=== PATIENT | female | born 2000 | race African-American/Black ===

== ENCOUNTER 2022-05-07 08:06 | Emergency (ER) | payer OTHER ==
[2022-05-07 08:20] VITALS: BP 112/77; PULSE 71; RESP 16; TEMP 97.6; BMI 33.0
[2022-05-07] MEDS ORDERED: LIDOCAINE 5% TOPICAL PATCH TP ONE (09:46)
[2022-05-07] MEDS ORDERED: KETOROLAC TROMETHAMINE 30 MG/1 ML VIAL IM ONE (09:46)
[2022-05-07] MEDS ORDERED: ACETAMINOPHEN 500 MG TABLET (FP) PO ONE (09:46)
[2022-05-07] MEDS ORDERED: CYCLOBENZAPRINE HCL 10 MG TABLET (FP) PO ONE (09:46)
[2022-05-07] MEDS ORDERED: LIDOCAINE 5% TOPICAL PATCH ONE (09:54)
[2022-05-07] MEDS ORDERED: KETOROLAC TROMETHAMINE 30 MG/1 ML VIAL ONE (09:54)
[2022-05-07] MEDS ORDERED: CYCLOBENZAPRINE HCL 10 MG TABLET (FP) ONE (09:54)
[2022-05-07] MEDS ORDERED: ACETAMINOPHEN 500 MG TABLET (FP) ONE (09:55)
[2022-05-07] MEDS ORDERED: LIDOCAINE PATCH REMOVAL MC ONE (22:00)
== END 2022-05-07 11:34 | disposition home or self-care (01) ==
LOC: JERFT 08:06 → JER 08:06 → JERFT 11:34
PROC: 3E0233Z Introduction of Anti-inflammatory into Muscle, Percutaneous Approach (ICD-10-PCS; principal; 2022-05-07)
DX: M54.2 Cervicalgia (principal); M54.50 Low back pain, unspecified; V43.62XA Car passenger injured in collision with other type car in traffic accident, initial encounter
CPT/HCPCS: 72125-TC; 99284-25

== ENCOUNTER 2023-12-15 14:41 | Emergency (ER) | payer OTHER ==
[2023-12-15 14:48] VITALS: BP 116/78; PULSE 86; RESP 20; TEMP 98.7; BMI 36.6
[2023-12-15 15:50] LABS: HCG,QUALITATIVE URINE Positive
[2023-12-15 15:51] LABS: EPI CELLS >36 /uL (0-25.1); HYALINE CASTS 7 /uL (0-3.1); PH,URINE 5.5 (5.0-8.0); URINE APPEARANCE CLOUDY; URINE BACTERIA 1144 /uL (0-1359); URINE BILIRUBIN 1+ (NEGATIVE); URINE COLOR DK YELLOW; URINE GLUCOSE (UA) NEGATIVE (NEGATIVE); URINE KETONE 1+ (NEGATIVE); URINE LEUK ESTERASE TRACE (NEGATIVE); URINE NITRITE NEGATIVE (NEGATIVE); URINE PROTEIN 1+ (NEGATIVE); URINE RBC 17 /uL (0-23.9); URINE WBC 89 /uL (0-25.8)
[2023-12-15] MEDS ORDERED: CEPHALEXIN MONOHYDRATE 500 MG CAPSULE (UD) ONE (16:29)
[2023-12-15] MEDS: CEPHALEXIN MONOHYDRATE 500 MG CAPSULE (UD) PO STA (16:43)
[2023-12-15 17:39] LABS: HIV INTERPRETATION NEGATIVE (NEGATIVE)
== END 2023-12-15 17:06 | disposition home or self-care (01) ==
LOC: JER 14:41
DX: O23.41 Unspecified infection of urinary tract in pregnancy, first trimester (principal); Z3A.00 Weeks of gestation of pregnancy not specified
CPT/HCPCS: 36415; 81003; 84702; 84703; 86803; 87086; 87389; 87491; 87591; 87661; 99283-25

== ENCOUNTER 2024-01-05 14:43 | Emergency (ER) | payer OTHER ==
[2024-01-05 14:51] VITALS: RESP 20; TEMP 97.8; BMI 36.6
[2024-01-05 15:33] LABS: BASO % 0.4 % (0-2.0); EOS % 1.1 % (0-4.5); HEMATOCRIT 38.7 % (32.4-45.2); HEMOGLOBIN 12.6 GM/dL (10.7-15.3); LYMPH % 17.6 % (8-40); MCH 28.4 pg (25.7-33.7); MCHC 32.7 g/dl (32.0-36.0); MEAN CELL VOLUME 87.1 fl (80-96); MEAN PLT VOLUME 8.1 fl (7.5-11.1); MONO % 9.2 % (3.8-10.2); NEUT % 71.7 % (42.8-82.8); PLATELET COUNT 308 10^3/uL (134-434); RBC 4.45 M/mm3 (3.60-5.2); RDW 13.7 % (11.6-15.6); WHITE BLOOD COUNT 15.2 K/mm3 (4.0-10.0)
[2024-01-05 16:14] LABS: POTASSIUM 4.2 mmol/L (3.5-5.1)
[2024-01-05 16:15] LABS: CALCIUM 9.4 mg/dL (8.5-10.1)
[2024-01-05 16:16] LABS: BLOOD UREA NITROGEN 6.1 mg/dL (7-18)
[2024-01-05 16:19] LABS: CREATININE 0.6 mg/dL (0.55-1.3)
[2024-01-05 16:23] LABS: HCG,QUALITATIVE URINE Positive
[2024-01-05 16:26] LABS: EPI CELLS >36 /uL (0-25.1); HYALINE CASTS 6 /uL (0-3.1); PH,URINE 6.5 (5.0-8.0); URINE APPEARANCE CLOUDY; URINE BACTERIA 2137 /uL (0-1359); URINE BILIRUBIN NEGATIVE (NEGATIVE); URINE COLOR YELLOW; URINE GLUCOSE (UA) NEGATIVE (NEGATIVE); URINE KETONE 1+ (NEGATIVE); URINE LEUK ESTERASE 1+ (NEGATIVE); URINE NITRITE NEGATIVE (NEGATIVE); URINE PROTEIN NEGATIVE (NEGATIVE); URINE WBC 165 /uL (0-25.8)
[2024-01-05 16:44] LABS: URINE RBC 22 /uL (0-23.9)
[2024-01-05 17:43] VITALS: BP 123/74; PULSE 75
== END 2024-01-05 18:09 | disposition home or self-care (01) ==
LOC: JER 14:43
DX: O20.9 Hemorrhage in early pregnancy, unspecified (principal); O23.41 Unspecified infection of urinary tract in pregnancy, first trimester; O26.891 Other specified pregnancy related conditions, first trimester; R10.31 Right lower quadrant pain; R10.32 Left lower quadrant pain; Z3A.01 Less than 8 weeks gestation of pregnancy
CPT/HCPCS: 36415; 76817-TC; 80048; 81003; 84702; 84703; 85025; 86850; 86900; 86901; 87086; 99284-25